=== PATIENT | female | born 1930 | race Caucasian/White ===

== ENCOUNTER 2017-10-17 19:20 | Emergency (ER) | payer MEDICARE, BC ==
[~2017-10-17] VITALS: Ht 162.6 cm; Wt 120.0 kg
[~2017-10-17 19:20] MED LIST: ADVA100A INH; ALBU0.63 NEB; ATOR20TA42 PO; CALTTAB5 PO; ESTR0.5T9 PO; HYDR-3133 PO; LANSO30 PO/TUBE; POTA-243 PO; PRED20 PO; PYRI25TA9 PO; QUIN10 PO; QUIN5 PO; TAB-TAB PO
[2017-10-17 19:40] VITALS: BP 168/76; PULSE 73; RESP 18; TEMP 97.5; O2SAT 98
== END 2017-10-17 21:00 | disposition left against medical advice (07) ==
LOC: NED 19:20
DX: M54.9 Dorsalgia, unspecified (principal)
CPT/HCPCS: 99281